=== PATIENT | male | born 1970 | race Caucasian/White ===

== ENCOUNTER 2017-06-18 10:08 | Emergency (ER) | payer SELFPAY ==
[~2017-06-18] VITALS: Ht 182.9 cm; Wt 92.2 kg
[~2017-06-18 10:08] MED LIST: ASPIR-LOW81 MG PO; ATORVASTATIN CA80 MG PO; BRILINTA90 MG PO; LISINOPRIL2.5 MG PO; LOPRESSOR25 MG PO; NICOTINE PATCH1 EAC1 TD; NITROSTAT0.4 MG SL; NOHOMEMEDS
[2017-06-18 10:49] LABS: HEMATOCRIT 45.2 % (38.0-50.0); HEMOGLOBIN 15.4 G/DL (12.5-16.6); MCH 30.7 PG (29.0-34.0); MCHC 34.1 G/DL (30.0-36.0); MCV 90.2 FL (86-99); PLATELET COUNT 169 K/uL (156-360); RBC DIS.WIDTH-CV 12.1 % (11.8-14.6); RBC DIS.WIDTH-SD 40.1 % (39-53); RED BLOOD COUNT 5.01 M/uL (4.00-5.50); WHITE BLOOD COUNT 5.6 K/uL (4.1-10.2)
[2017-06-18 11:01] LABS: CHLORIDE 103 mEq/L (99-109); POTASSIUM 4.5 mEq/L (3.7-5.4); SODIUM 137 mEq/L (136-147)
[2017-06-18 11:02] LABS: GLUCOSE 104 mg/dL (70-99)
[2017-06-18 11:06] LABS: CREATININE 1.2 mg/dL (0.6-1.3); GFR ESTIMATE (CALCULATED) > 59 mL/min/ (58.99-99999)
[2017-06-18 11:07] LABS: UREA NITROGEN (BUN) 12 mg/dL (9-23)
[2017-06-18 11:10] LABS: TROP-I INTERPRETATION NEGATIVE; TROPONIN-I < 0.01 ng/mL (0.0-0.30)
[2017-06-18] MEDS ORDERED: MOTRIN800 MG PO (13:19)
[2017-06-18 13:54] VITALS: BP 125/78
== END 2017-06-18 14:14 | disposition home or self-care (01) ==
LOC: EME 10:08
DX: R07.89 Other chest pain (principal); M79.1 Myalgia; F32.9 Major depressive disorder, single episode, unspecified; F17.200 Nicotine dependence, unspecified, uncomplicated; I25.2 Old myocardial infarction; Z86.73 Personal history of transient ischemic attack (TIA), and cerebral infarction without residual deficits; Z95.5 Presence of coronary angioplasty implant and graft; Z90.49 Acquired absence of other specified parts of digestive tract; Z88.0 Allergy status to penicillin
CPT/HCPCS: 71046; 80048; 84484; 85027; 93005; 93970; 99281; 99285